=== PATIENT | male | born 1960 | race Caucasian/White ===

== ENCOUNTER 2016-04-26 09:29 | Emergency (ER) | payer OTHER, MEDICARE ==
[~2016-04-26] VITALS: Ht 185.4 cm; Wt 93.0 kg
[~2016-04-26 09:29] MED LIST: ADVI200C9 PO; ASCO500C PO
[2016-04-26 09:30] VITALS: BP 120/79; PULSE 76; RESP 16; TEMP 97.7; O2SAT 96
[2016-04-26] MEDS ORDERED: TETANUS/DIPHTHERIA TOXOID ADULT 0.5 ML VIAL IM ONE (09:45)
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
[2016-04-26] MEDS ORDERED: CEPH-460 PO (10:38)
[2016-04-26] MEDS ORDERED: IBUP800T23 PO (10:38)
== END 2016-04-26 10:42 | disposition home or self-care (01) ==
LOC: NEPB 09:29
DX: S90.211A Contusion of right great toe with damage to nail, initial encounter (principal); V29.9XXA Motorcycle rider (driver) (passenger) injured in unspecified traffic accident, initial encounter; Z23 Encounter for immunization
CPT/HCPCS: 11740; 73610; 73630; 90471; 90714

== ENCOUNTER 2016-05-30 13:34 | Emergency (ER) | payer MEDICARE ==
[~2016-05-30] VITALS: Ht 180.3 cm; Wt 95.5 kg
[~2016-05-30 13:34] MED LIST changes: +CEPH-460 PO; +IBUP800T23 PO
[2016-05-30 13:36] VITALS: BP 148/50; PULSE 68; RESP 18; TEMP 98.2; O2SAT 98
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
== END 2016-05-30 14:12 | disposition left against medical advice (07) ==
LOC: NEPK 13:34
DX: M79.671 Pain in right foot (principal)
CPT/HCPCS: 99281